=== PATIENT | female | born 1955 | race Hispanic/Latino ===

== ENCOUNTER 2018-10-06 01:33 | Emergency (ER) | payer OTHER ==
[2018-10-06] MEDS ORDERED: LIDOCAINE HCL-MPF 1% 2ML VIAL ONE (01:51)
[2018-10-06] MEDS ORDERED: KETOROLAC TROMETHAMINE 60 MG/2 ML VIAL ONE (01:52)
[2018-10-06] MEDS ORDERED: CEFTRIAXONE SODIUM 1 GM ONE (01:52)
[2018-10-06] MEDS ORDERED: HYDROCODONE/ACETAMINOPHEN 10/325 MG TAB ONE (01:52)
[2018-10-06] MEDS ORDERED: ONDANSETRON ODT 4 MG TAB ONE (01:53)
== END 2018-10-06 02:53 ==
LOC: EDH 01:33
DX: K02.9 Dental caries, unspecified (principal); K04.7 Periapical abscess without sinus
CPT/HCPCS: 93005; 96372 ×2; 99284; J0696; J1885; J3490